=== PATIENT | male | born 1940 | race Caucasian/White ===

== ENCOUNTER 2021-07-15 07:05 | Outpatient (CLI) | payer MEDICARE, OTHER ==
[~2021-07-15] VITALS: Ht 177.8 cm; Wt 95.5 kg
[2021-07-16] MEDS ORDERED: PANT40TA52 PO (11:58)
[2021-07-16] MEDS ORDERED: METO50TA7 PO (11:58)
[2021-07-16] MEDS ORDERED: FERR-84 PO (11:58)
[2021-07-16] MEDS ORDERED: LISI20TA26 PO (11:58)
[2021-07-16] MEDS ORDERED: MULT-1056 PO (11:58)
== END 2021-07-16 12:01 | disposition home or self-care (01) ==
LOC: PREOP 07:05
PROVIDERS: ATTEND Specialist
DX: Z01.818 Encounter for other preprocedural examination (principal)

== ENCOUNTER 2021-07-19 09:10 | Day surgery (SDC) | payer MEDICARE, OTHER ==
[~2021-07-19] VITALS: Ht 177.8 cm; Wt 95.5 kg
[~2021-07-19 09:10] MED LIST: FERR-84 PO; LISI20TA26 PO; METO50TA7 PO; MULT-1056 PO; PANT40TA52 PO
[2021-07-19] MEDS ORDERED: POVIDONE (BETADINE) OPHTH SOLN 5% 30 ML OP ONE (09:30)
[2021-07-19] MEDS ORDERED: TIMOLOL MALEATE 0.5% 5 ML (TIMOPTIC) BTL OU PRN (09:30)
[2021-07-19] MEDS ORDERED: LIDOCAINE PF 1% 2 ML VIAL IR PRN (09:30)
[2021-07-19] MEDS ORDERED: MOXIFLOXACIN OPHTH SOLN 5 MG/ML 0.3 ML SYRINGE OP ONE (09:30)
[2021-07-19 09:40] VITALS: BP 161/109
[2021-07-19] MEDS: TETRACAINE 0.5% OPHTH SOLN 4 ML BTL (SINGLE DOSE ONLY) OU PRN ×4 (09:42→10:04)
[2021-07-19] MEDS: PHENYLEPHRINE 10% OPHTH (NEO-SYN) 5 ML BTL OU SCH ×3 (09:48→10:04)
[2021-07-19] MEDS: TROPICAMIDE 1% OPH SOLN (MYDRIACYL) 15 ML BTL OP SCH ×3 (09:48→10:04)
[2021-07-19] MEDS ORDERED: MIDAZOLAM 2 MG/2 ML (VERSED) VIAL ONE (10:19)
[2021-07-19] MEDS ORDERED: acetaZOLAMIDE ER 500 MG CAP (DIAMOX SEQUELS) PO ONE (10:30)
--- NOTE | 2021-07-19 10:41 | Ophthalmologist Pre-Op Note ---
Pre-Operative Progress Note H&P Reviewed The H&P was reviewed, patient examined and no changes noted. Date H&P Reviewed: Jul 19, 2021 Time H&P Reviewed: 10:41 Pre-Op Dx Cataract, Right Eye LAINEY GRIJALVA MD Jul 19, 2021 10:41
--- NOTE | 2021-07-19 11:04 | Ophthalmology Operative Report ---
Cataract removal/placement IOL PREOPERATIVE DIAGNOSIS: Cataract Right Eye POSTOPERATIVE DIAGNOSIS: Cataract Right Eye PROCEDURE: Cataract removal and placement of posterior chamber implant, right eye SURGEON: Donaldo Grijalva ANESTHESIA: Topical with sedation COMPLICATIONS: None ESTIMATED BLOOD LOSS: Minimal DESCRIPTION OF PROCEDURE: After proper informed consent was obtained, the patient, a 81 male, was taken to the Operating Room and the right eye was anesthetized with tetracaine. The right eye was then prepped and draped in the usual manner. A wire lid speculum was placed. A paracentesis was made at the left hand position. Preservative free lidocaine was injected into the anterior chamber followed by viscoelastic. A clear corneal incision was made in the temporal position. A capsulorrhexis was preformed and the central nuclear and cortical material were removed. The posterior capsule was polished and [place] AU00T0 21.0 IOL was placed into the capsular bag. The residual viscoelastic was aspirated and balanced saline solution was injected into the anterior chamber. Moxifloxacin was injected into the anterior chamber. The wound was checked and found to be water tight. The patient tolerated the procedure well without complications. DONALDO GRIJALVA MD Jul 19, 2021 11:04
[2021-07-19 11:10] VITALS: BP 170/124
--- NOTE | 2021-07-19 13:11 | Anesthesia-General Post-Op ---
MAC Patient Condition Mental Status/LOC: Same as Preop Cardiovascular: Satisfactory Nausea/Vomiting: Absent Respiratory: Satisfactory Pain: Controlled Complications: Absent Post Op Complications Complications None Follow Up Care/Instructions Patient Instructions None needed. Anesthesiology Discharge Order Discharge Order Patient is doing well, no complaints, stable vital signs, no apparent adverse anesthesia problems. No complications reported per nursing. COLT WILSON CRNA Jul 19, 2021 13:11
== END 2021-07-19 11:12 ==
LOC: SDC 09:10
PROVIDERS: ATTEND Specialist
DX: H25.11 Age-related nuclear cataract, right eye (principal); I10 Essential (primary) hypertension; K21.9 Gastro-esophageal reflux disease without esophagitis; Z87.891 Personal history of nicotine dependence
CPT/HCPCS: 66984; V2632

== ENCOUNTER 2021-10-10 18:22 | Emergency (ER) | payer MEDICARE, OTHER ==
[~2021-10-10] VITALS: Ht 177 cm; Wt 90.0 kg
[2021-10-10 18:26] VITALS: BP 148/111
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
[2021-10-10] MEDS ORDERED: ACHD5005 PO ×2 (18:35→18:57)
== END 2021-10-10 19:07 | disposition home or self-care (01) ==
LOC: EDUNIT# 18:22 → ER FS 18:23
DX: T23.252A Burn of second degree of left palm, initial encounter (principal); T23.201A Burn of second degree of right hand, unspecified site, initial encounter; T23.231A Burn of second degree of multiple right fingers (nail), not including thumb, initial encounter; T20.10XA Burn of first degree of head, face, and neck, unspecified site, initial encounter; X00.8XXA Other exposure to uncontrolled fire in building or structure, initial encounter; Y92.513 Shop (commercial) as the place of occurrence of the external cause
CPT/HCPCS: 99283

== ENCOUNTER 2022-11-14 05:35 | Outpatient (CLI) | payer MEDICARE, OTHER ==
[~2022-11-14] VITALS: Ht 177.8 cm; Wt 95.5 kg
[~2022-11-14 05:35] MED LIST changes: +ACHD5005 PO
== END 2022-11-20 09:17 | disposition home or self-care (01) ==
LOC: PREOP 05:35 → EDBD 05:35 → PREOP 11-20 09:17
PROVIDERS: ATTEND Specialist
DX: Z01.818 Encounter for other preprocedural examination (principal)

== ENCOUNTER 2022-11-21 10:55 | Day surgery (SDC) | payer MEDICARE, OTHER ==
[~2022-11-21] VITALS: Ht 177.8 cm; Wt 95.5 kg
[2022-11-21 11:00] VITALS: BP 154/91
[2022-11-21] MEDS ORDERED: POVIDONE (BETADINE) OPHTH SOLN 5% 30 ML OP ONE (11:15)
[2022-11-21] MEDS ORDERED: MOXIFLOXACIN OPHTH SOLN 5 MG/ML 0.3 ML SYRINGE OP ONE (11:15)
[2022-11-21] MEDS ORDERED: TIMOLOL 0.5% (CATARACTS) 0.3 ML BTL OU PRN (11:15)
[2022-11-21] MEDS: TETRACAINE 0.5% OPHTH SOLN 4 ML BTL (SINGLE DOSE ONLY) OU PRN ×3 (11:17→11:29)
[2022-11-21] MEDS: PHENYLEPHRINE 10% OPHTH (NEO-SYN) 5 ML BTL OU SCH ×3 (11:25→11:33)
[2022-11-21] MEDS: TROPICAMIDE 1% OPH SOLN (MYDRIACYL) 15 ML BTL OP SCH ×3 (11:25→11:33)
[2022-11-21] MEDS ORDERED: MIDAZOLAM 2 MG/2 ML (VERSED) VIAL ONE (12:00)
--- NOTE | 2022-11-21 12:20 | Ophthalmologist Pre-Op Note ---
Pre-Operative Progress Note H&P Reviewed The H&P was reviewed, patient examined and no changes noted. Date H&P Reviewed: Nov 21, 2022 Time H&P Reviewed: 12:00 Pre-Op Dx Cataract, Left Eye LAINEY GRIJALVA MD Nov 21, 2022 12:20
--- NOTE | 2022-11-21 12:20 | Ophthalmology Operative Report ---
Cataract removal/placement IOL PREOPERATIVE DIAGNOSIS: Cataract Left Eye POSTOPERATIVE DIAGNOSIS: Cataract Left Eye PROCEDURE: Cataract removal and placement of posterior chamber implant, left eye SURGEON: Donaldo Grijalva ANESTHESIA: Topical with sedation COMPLICATIONS: None ESTIMATED BLOOD LOSS: Minimal DESCRIPTION OF PROCEDURE: After proper informed consent was obtained, the patient, a 82 male, was taken to the Operating Room and the left eye was anesthetized with tetracaine. The left eye was then prepped and draped in the usual manner. A wire lid speculum was placed. A paracentesis was made at the left hand position. Preservative free lidocaine was injected into the anterior chamber followed by viscoelastic. A clear corneal incision was made in the temporal position. A capsulorrhexis was preformed and the central nuclear and cortical material were removed. The posterior capsule was polished and an [place] 20.5 AU00T0 was placed into the capsular bag. The residual viscoelastic was aspirated and balanced saline solution was injected into the anterior chamber. Moxifloxacin was injected into the anterior chamber. The wound was checked and found to be water tight. The patient tolerated the procedure well without complications. DONALDO GRIJALVA MD Nov 21, 2022 12:20
[2022-11-21 12:30] VITALS: BP 153/88
--- NOTE | 2022-11-21 13:11 | Anesthesia-General Post-Op ---
MAC Patient Condition Mental Status/LOC: Same as Preop Cardiovascular: Satisfactory Nausea/Vomiting: Absent Respiratory: Satisfactory Pain: Controlled Complications: Absent Post Op Complications Complications None Follow Up Care/Instructions Patient Instructions None needed. Anesthesiology Discharge Order Discharge Order Patient is doing well, no complaints, stable vital signs, no apparent adverse anesthesia problems. No complications reported per nursing. JIN RUANO CRNA Nov 21, 2022 13:11
[2022-11-21] MEDS ORDERED: acetaZOLAMIDE ER 500 MG CAP (DIAMOX SEQUELS) PO ONE (13:15)
== END 2022-11-21 12:30 | disposition home or self-care (01) ==
LOC: EDBD → SDC 10:55
PROVIDERS: ATTEND Specialist
DX: H25.9 Unspecified age-related cataract (principal)
CPT/HCPCS: 66984; V2632